=== PATIENT | male | born 1990 | race Caucasian/White ===

== ENCOUNTER 2017-08-21 10:44 | Emergency (ER) | payer MEDICAID, OTHER ==
[2017-08-21 10:50] VITALS: BMI 28.0
[2017-08-21 10:52] VITALS: PULSE 100; RESP 20; TEMP 98.2; O2SAT 99
--- NOTE | 2017-08-21 11:19 | C.PDOC ---
History Of Present Illness 27 years old male presents to the ED for evaluation of severe wisdom tooth pain onset today morning. Per friend, pain has been intermittent but worsened today. Patient reports he has no dentist to follow up. PMD: non provided Time Seen by Provider: 08/21/17 11:04 Chief Complaint (Nursing): Dental Pain History Per: Patient, Other (Friend) History/Exam Limitations: no limitations Onset/Duration Of Symptoms: Hrs Current Symptoms Are (Timing): Worse Past Medical History Reviewed: Historical Data, Nursing Documentation, Vital Signs Vital Signs: Last Vital Signs Temp 98.2 F 08/21/17 10:51 Pulse 100 H 08/21/17 10:51 Resp 20 08/21/17 10:51 BP Pulse Ox 99 08/21/17 11:28 - Medical History PMH: No Chronic Diseases Surgical History: No Surg Hx - [facility] TETANUS TOXOID ADMINIST (10/27/14) Family History: States: Unknown Family Hx - Social History Hx Tobacco Use: Yes (Cigarettes) Hx Alcohol Use: No Hx Substance Use: No - Immunization History Hx Tetanus Toxoid Vaccination: No Review Of Systems Except As Marked, All Systems Reviewed And Found Negative. ENT: Positive for: Mouth Pain ([place] tooth pain) Physical Exam - Physical Exam Appears: Non-toxic Teeth: Other (Broken upper left molar) Neurological/Psych: Oriented x3 ED Course And Treatment O2 Sat by Pulse Oximetry: 99 (RA) Pulse Ox Interpretation: Normal Medical Decision Making Medical Decision Making: Time: 1109 Initial plan: --Motrin 600 mg PO --Ultram 50 mg PO Time: 1115 Patient is instructed to follow up with a dentist as soon as possible to remove the broken molar. Time: 1126 Patient has found a dentist and is heading there now. Disposition Counseled Patient/Family Regarding: Diagnosis, Need For Followup - Disposition Disposition: HOME/ ROUTINE Disposition Time: 11:26 Condition: STABLE Additional Instructions: Follow up with a dentist now. Instructions: Dental Pain (DC) Forms: [facility] (Russian), General Discharge Instructions - Clinical Impression Clinical Impression: Dental caries - Scribe Statement The provider has reviewed the documentation as recorded by the Scribe (Shelia Dickerson)
== END 2017-08-21 11:45 | disposition home or self-care (01) ==
LOC: C.ER 10:44
DX: K02.9 Dental caries, unspecified (principal)